=== PATIENT | male | born 1995 | race Caucasian/White ===

== ENCOUNTER 2019-03-12 10:11 | Emergency (ER) | payer SELFPAY ==
[2019-03-12 10:11] VITALS: BP 129/75; PULSE 114; RESP 20; TEMP 37.1; O2SAT 96; BMI 21.4
--- NOTE | 2019-03-12 10:43 | W.ED.ABDPA2 ---
HPI - Abdominal Pain General: Chief Complaint: Abdominal Pain Stated Complaint: vomiting, body aches Time Seen by Provider: 03/12/19 10:37 Source: patient Mode of arrival: ambulatory Limitations: no limitations History of Present Illness: HPI narrative: Patient comes in with complaints of nausea and vomiting starting this morning. Patient reports 2 episodes of mainly frothy type substance without any food. Patient has not eaten this morning. Patient states his ieutjx-ak-liy was also ill. Patient appears mildly unwell. Patient appears in no severe pain. MD elicited complaint: abdominal pain Associated Symptoms: Reports nausea and vomiting (twice) Review of Systems General: Reports: 10 or more systems reviewed and unremarkable except in HPI and below GI: Reports: nausea and vomiting (twice) PFSH ED PFSH: Statuses (acute, chronic, etc) shown below reflect problem list status as previously entered and may not be historically accurate Social History Smoking and tobacco status: never smoked Physical Exam Const: COMMON NORMALS: no apparent distress and oriented x3 GENERAL APPEARANCE: cooperative HENMT: COMMON NORMALS: normocephalic, external ears normal, EAC's normal, TM's normal bilaterally and external nose normal HEAD & SCALP: normal to inspection and normocephalic FACE & SINUS: normal facial exam NOSE: external nose normal GENERAL EAR: hearing grossly impaired EXTERNAL EAR: Yes external ears normal EXTERNAL AUDITORY CANAL: EAC's normal TYMPANIC MEMBRANE: TM's normal bilaterally MOUTH: oral and palatal mucosa normal THROAT: posterior oropharynx normal Eye: COMMON NORMALS: PERRL and EOMs intact bilaterally PUPIL: Yes PERRL Neck/C-Spine: COMMON NORMALS: full ROM and no lymphadenopathy Lymph: LYMPHATIC: no lymphedema noted Chest: COMMONS NORMALS: inspection of chest normal and palpation of chest normal Resp: COMMON NORMALS: normal respiratory effort and clear to auscultation bilaterally AUSCULTATION: clear to auscultation bilaterally Cardio: COMMON NORMALS: regular rate and regular rhythm RATE: regular rate RHYTHM: regular rhythm GI: COMMON NORMALS: normal to inspection, nondistended, normoactive bowel sounds and non-tender : COMMON NORMALS: Yes no CVA tenderness BLADDER/KIDNEY EXAM: Yes no CVA tenderness Back/Pelvis: COMMON NORMALS: no CVA tenderness and thoracic and lumbar spine normal to inspection Extremity: COMMON NORMALS: normal to inspection GENERAL: No edema Neuro: COMMON NORMALS: oriented x3, moves all extremities and no focal motor deficits Psych: COMMON NORMALS: mental status grossly normal and cooperative Skin: COMMON NORMALS: no rashes or lesions noted GENERAL SKIN EXAM: no rashes or lesions noted Course Vital Signs: Vital signs: Vital Signs Temperature 98.8 F 03/12/19 10:11 Pulse Rate 114 H 03/12/19 10:11 Respiratory Rate 20 H 03/12/19 10:11 Blood Pressure 129/75 03/12/19 10:11 Pulse Oximetry 96 03/12/19 10:11 MDM - Abdominal Pain MDM Narrative: Medical decision making narrative: Patient comes in today with complaints of some epigastric pain with nausea and vomiting x1. Patient reports that his ypefrl-vc-rxr was also ill with similar symptoms. Exam notes no significant tenderness with palpation of the abdomen. Posterior pharynx shows some clear drainage. Respirations are even lungs are clear to auscultation. Differential diagnosis includes gastroenteritis, gastroesophageal reflux disease, pancreatitis, colitis, cholecystitis, appendicitis. Reviewed exam with patient recommended clear liquid diet along with medication for nausea. Recommend work excuse for today reviewed usual course of gastroenteritis with recommendations for return to the ER for worsening signs and symptoms. Patient was agreeable to plan with need for follow-up. Discharge Plan Discharge Patient Disposition: Home, Self-Care Clinical Impression: Gastroenteritis Condition: Stable Prescriptions: New ondansetron HCl 4 mg tablet 4 mg PO Q8H PRN (Reason: nausea and vomiting) Qty: 10 RF: 0 Discharge Orders: Discharge Order (Routine); Ordered 03/12/19 Ordered By: Jamari Martinez Referrals: JANUSZ [Other] Discharge Diet: increase as tolerated Discharge Activity: Increase activity as tolerated Activity Restrictions/Additional Instructions: Drink plenty of fluids Activity as tolerated Monitor for high fever, blood in vomit or stool, or localizing pain into right lower abdomen Return to ER for concerns Follow-up with primary care in one week as needed Stand Alone Forms: Work/School Release Coding Level of Care Code ED Exhaust And Muffler Repairer for Gregory Tan Exam Problem Focused
[2019-03-12 10:52] VITALS: BP 106/70; PULSE 106; RESP 16; TEMP 37.6; O2SAT 97
== END 2019-03-12 10:56 | disposition home or self-care (01) ==
LOC: ER 04-02 11:34
PROVIDERS: Emergency Provider Nurse Practitioner Family
DX: K52.9 Noninfective gastroenteritis and colitis, unspecified (principal)
CPT/HCPCS: 99281

== ENCOUNTER → 2021-01-20 15:13 | Outpatient (BNVA) | payer OTHER, SELFPAY | PROVIDERS: Visit Provider Emergency Medicine | DX: Z20.822 Contact with and (suspected) exposure to COVID-19 (principal) | CPT/HCPCS: 87635 ==

== ENCOUNTER → 2023-09-05 10:44 | Outpatient (BNVA) | payer OTHER, SELFPAY | PROVIDERS: Visit Provider Family Medicine | DX: L98.9 Disorder of the skin and subcutaneous tissue, unspecified (principal) | CPT/HCPCS: 88304 ==

== ENCOUNTER 2024-10-29 05:30 | Emergency (ER) | payer OTHER, SELFPAY ==
--- OUTSIDE RECORDS SUMMARY | 2024-10-29 05:38 | XMS_ITS | Patient Health Record ---
Author Organization [facility] Address [address] [place] [address] Care Team Providers Care Accounts Payable Payroll Coordinator Name Role Phone Cathi Fitch Primary Care Provider Allergies No Known Allergies Reason For Referral No Information Medications Medication SIG (Take, Route, Frequency, Duration) Notes Start Date End Date Status Zithromax 250 MG Tablet as directed Orally 022 Active [id number]-[id number] Suspension 4 drops into affected ear Otic Three times a day; Duration: 7 days 02/08/2022 Active Social History Tobacco Use: Social History Observation Description Date Details (start date - stop date) Never Smoker NA - NA Social History Depression Screening Social Info Question Answer Notes PHQ-9 Little interest or pleasure in doing thin gs Not at all Feeling down, depressed, or hopeless Not at all Trouble falling or staying asleep, or sleeping t oo much Not at all Feeling tired or having little energy Not at all Poor appetite or overeating Not at all Feeling bad about yourself, or that you are a failure, or have let yourself or your family down Not at all Trouble concentrating on thi ngs, such as reading the newspaper or watching television Not at all Moving or speaking so slowly that other people could have noticed. Or the opposite ? being so fidgety or restless that you have been moving around a lot more than usual Not at all Thoughts that you would be b ancelmo off , or of hurting yourself in some way Not at all Total Score 0 Drugs/Alcohol: Social Info Question Answer Notes Alcohol Screen (Audit-C) Did you have a drink containing alcohol in the past year? No Points 0 Interpretation Negative Tobacco Use: Social Info Question Answer Notes xTobacco Use/Smoking Are you a nonsmoker Section Notes: 02-08-22 PHQ9 Plan Of Treatment No Information Insurance Providers Payer Name Payer Address Payer Phone Subscriber Number Group Number Insured Name Patient Relationship to Insured Coverage Start Date Coverage End Date [facility] [address] [address] [place] [address] [id number] Edgar Lugo Self - patient is the insured
[2024-10-29 05:40] VITALS: BP 127/76; PULSE 56; TEMP 36.7; O2SAT 96; BMI 22.9
[2024-10-29 05:51] VITALS: BP 116/77; PULSE 63; O2SAT 96
--- NOTE | 2024-10-29 06:08 | W.ED.ABDPA2 ---
HPI - Abdominal Pain General: Chief Complaint: Abdominal Pain Stated Complaint: n/v abd pain Time Seen by Provider: 10/29/24 06:01 History of Present Illness: 29-year-old male presents emergency room complaining of right upper quadrant pain radiating to his back that began overnight. He previously had episodes like this. He had nausea and vomiting he denies any diarrhea. No hematemesis or coffee-ground emesis. Denies dysuria urgency or frequency no hematuria remotely had a kidney stone says this does not feel like that at all. No previous abdominal surgeries. Associated Symptoms: Reports nausea and vomiting; Denies chills, coffee ground emesis, diarrhea, dysuria, fever(s) and hematemesis Related Data Previous Rx's ?Medication ?Instructions ?Recorded prednisone 10 mg tablets in a dose See Rx Instructions PO PER PKG DIR 06/05/24 pack #21 ea hydrocodone 5 mg-acetaminophen 325 1 tab PO Q6H PRN pain #15 tabs 10/29/24 mg tablet promethazine 25 mg tablet 25 mg PO Q6H PRN nausea and 10/29/24 vomiting #20 tabs tamsulosin 0.4 mg capsule 0.4 mg PO DAILY #14 caps 10/29/24 Allergies Allergy/AdvReac Type Severity Reaction Status Date / Time No Known Allergies Allergy Verified 10/29/24 05:45 Review of Systems Const: Denies: fever(s) or chills Card: Denies: chest pain Resp: Denies: dyspnea GI: Reports: abdominal pain, nausea and vomiting; Denies: hematemesis, coffee ground emesis or diarrhea : Denies: dysuria, urinary frequency or urinary urgency Musc: Denies: neck pain or back pain Skin/Breast: Denies: rash PFSH ED PFSH: Social History Smoking and tobacco/nicotine status: never used tobacco/nicotine Physical Exam Const: GENERAL APPEARANCE: cooperative ORIENTATION/CONSCIOUSNESS: Yes awake, Yes oriented to person, Yes oriented to place and Yes oriented to time HENMT: COMMON NORMALS: normocephalic, atraumatic and hearing grossly normal bilaterally HEAD & SCALP: normocephalic and atraumatic Resp: COMMON NORMALS: normal respiratory effort, No retractions, No use of accessory muscles and clear to auscultation bilaterally AUSCULTATION: clear to auscultation bilaterally Cardio: COMMON NORMALS: regular rate, regular rhythm and No murmurs present (Cardio) RATE: regular rate RHYTHM: regular rhythm GI: COMMON NORMALS: Soft to palpation and No hepatosplenomegaly present AUSCULTATION: Yes normoactive bowel sounds PALPATION: Yes Soft to palpation, No Tenderness to palpation present (GI), No Guarding due to palpation present (GI) and Yes No hepatosplenomegaly present Extremity: COMMON NORMALS: normal to inspection, capillary refill normal, no clubbing, cyanosis or edema, no calf tenderness and no pedal edema Neuro: SENSORIUM/ORIENTATION: Yes oriented to person, Yes oriented to place and Yes oriented to time Skin: COMMON NORMALS: no rashes or lesions noted GENERAL SKIN EXAM: no rashes or lesions noted Course Vital Signs: Vital signs: Vital Signs Temperature 98.0 F 10/29/24 05:40 Pulse Rate 70 10/29/24 07:42 Blood Pressure 117/71 10/29/24 07:42 Pulse Oximetry 95 10/29/24 07:42 Oxygen Delivery Me thod Room Air 10/29/24 06:24 MDM - Abdominal Pain Medical Decision Making Microscopic hematuria on UA. CT shows 2 to 3 mm stone mid ureter on the right. Discharged home on tamsulosin and hydrocodone promethazine to use as needed strain urine to collect stone follow-up with urology. Medical Records I reviewed the patient's medical records. Lab Data I reviewed the patient's lab results. 10/29/24 05:48 10/29/24 05:48 Labs/Radiology: Radiology Impressions Abdomen/Pelvis CT 10/29/24 06:35 IMPRESSION: Very mild right hydronephrosis secondary to a 2-3 mm stone in the right ureter at the L4 level. Laboratory Results WBC 6.21 10^3/uL (3.29-11.43) 10/29/24 05:48 RBC 5.65 10^6/uL (3.85-5.65) 10/29/24 05:48 Hgb 15.80 g/dL (11.27-16.99) 10/29/24 05:48 Hct 47.6 % (37-53) 10/29/24 05:48 MCV 84.2 fl (82-101) 10/29/24 05:48 MCH 28.0 pg (27-33) 10/29/24 05:48 MCHC 33.2 g/dL (30-55) 10/29/24 05:48 RDW 11.9 % (12.1-15.1) L 10/29/24 05:48 Plt Count 208 10^3/cmm (157-399) 10/29/24 05:48 MPV 10.7 fL (7.4-10.4) H 10/29/24 05:48 Neut % (Auto) 68.2 % 10/29/24 05:48 Lymph % (Auto) 22.4 % 10/29/24 05:48 [place] % (Auto) 7.7 % 10/29/24 05:48 Eos % (Auto) 1.1 % 10/29/24 05:48 Baso % (Auto) 0.3 % 10/29/24 05:48 Neut # (Auto) 4.23 10^3/uL (1.8-7.7) 10/29/24 05:48 Lymph # (Auto) 1.4 10^3/uL (0.8-4.8) 10/29/24 05:48 [place] # (Auto) 0.5 10^3/uL (0.2-0.9) 10/29/24 05:48 Eos # (Auto) 0.1 10^3/uL (0.0-0.8) 10/29/24 05:48 Baso # (Auto) 0.0 10^3/uL (0.0-0.1) 10/29/24 05:48 Nucleated RBC % (auto) 0 % 10/29/24 05:48 Nucleated RBCs # 0.0 /100WBC 10/29/24 05:48 Sodium 139 mmol/L (136-145) 10/29/24 05:48 Potassium 4.3 mmol/L (3.5-5.1) 10/29/24 05:48 Chloride 101 mmol/L (98-107) 10/29/24 05:48 Carbon Dioxide 28 mmol/L (22-29) 10/29/24 05:48 Anion Gap 14.3 (5-19) 10/29/24 05:48 BUN 12 mg/dL (6-20) 10/29/24 05:48 Creatinine 1.0 mg/dL (0.7-1.2) 10/29/24 05:48 GFR Calculation 89.0 mL/min (90-130) L 10/29/24 05:48 Glucose 115 mg/dL (65-115) 10/29/24 05:48 Calculated Osmolality 289 mOsm/kg (285-295) 10/29/24 05:48 Calcium 9.7 mg/dL (8.5-10.5) 10/29/24 05:48 Total Bilirubin 0.8 mg/dL (0.15-1.2) 10/29/24 05:48 AST 14 U/L (0-40) 10/29/24 05:48 ALT 23 U/L (0-41) 10/29/24 05:48 Alkaline Phosphatase 98 U/L (40-130) 10/29/24 05:48 Total Protein 7.5 g/dL (6.6-8.7) 10/29/24 05:48 Albumin 4.8 g/dL (3.5-5.2) 10/29/24 05:48 Globulin 2.7 g/dL (1.3-4.6) 10/29/24 05:48 Lipase 22 U/L (13-60) 10/29/24 05:48 Urine Color Yellow (Yellow) 10/29/24 07:14 Urine Appearance Cloudy (CLEAR) A 10/29/24 07:14 Urine pH 7.0 (5-7) 10/29/24 07:14 Ur Specific [place] 1.029 (1.005-1.030) 10/29/24 07:14 Urine Protein 1+ (Negative) A 10/29/24 07:14 Urine Glucose (UA) Negative (Normal) 10/29/24 07:14 Urine Ketones Negative (Negative) 10/29/24 07:14 Urine Blood 3+ (Negative) A 10/29/24 07:14 Urine Nitrate Negative (Negative) 10/29/24 07:14 Urine Bilirubin Negative (Negative) 10/29/24 07:14 Urine Urobilinogen 0.2 mg/dL (Negative) 10/29/24 07:14 Ur Leukocyte Esterase Negative (Negative) 10/29/24 07:14 Urine RBC 51-100 /hpf (0-2) H 10/29/24 07:14 Urine WBC 6-10 /hpf (0-5) 10/29/24 07:14 Ur Squamous Epith Cells 0-5 /hpf (0-5) 10/29/24 07:14 Amorphous Sediment Not Reportable 10/29/24 07:14 Urine Bacteria None seen /hpf (NONE) 10/29/24 07:14 Hyaline Casts 2.46 /lpf 10/29/24 07:14 Urine Mucus Trace /hpf 10/29/24 07:14 Urine Sperm 1+ /hpf 10/29/24 07:14 All radiology interpretation(s) finalized by discharge Discharge Plan Discharge Patient Disposition: Home Clinical Impression: Calculus of kidney Condition: Stable Prescriptions: New hydrocodone-acetaminophen 5-325 mg tablet 1 tab PO Q6H PRN (Reason: pain) Qty: 15 0RF promethazine 25 mg tablet 25 mg PO Q6H PRN (Reason: nausea and vomiting) Qty: 20 0RF tamsulosin 0.4 mg capsule 0.4 mg PO DAILY Qty: 14 0RF No Action prednisone 10 mg tablets,dose pack See Rx Instructions PO PER PKG DIR Qty: 21 0RF Rx Instructions: PO PER PKG DIR Discharge Orders: Discharge ED (Routine); Ordered 10/29/24 Ordered By: Haroon Yuan Discharge Diet: Usual diet Discharge Activity: Increase activity as tolerated Patient Instructions: Kidney Stones (ED), How to Strain Your Urine (ED), Opioid Safety, Pain Management, Patient Portal & Judith Instructions Activity Restrictions/Additional Instructions: Thank you for choosing [facility] for your healthcare needs today. It is very important that you follow up as instructed or that you return to the Emergency Department should you have concerns or if your condition changes or worsens in any way. Emergency department visits are focused on emergent conditions, in some cases you may require further evaluation on an outpatient basis. You were seen in the emergency room with abdominal pain urine showed some blood CT shows a 2 to 3 mm stone in the right ureter. Stones less than 5 mm typically will pass. We started you on tamsulosin which helps the stone pass quicker you are given hydrocodone and promethazine for pain and nausea as needed. Strain your urine to collect the stone to be analyzed. web site project manager will make arrangements for you to follow-up with urologist (Please note that included in your discharge packet is information concerning opioid safety and pain management. This information is given to all patients were discharged from the ER regardless of their discharge diagnosis or the medicines they usually take or are prescribed.) Print Language: Burmese Coding Level of Care Code ED Director Of Physical Therapy for Gregory Tan
[2024-10-29 06:09] LABS: Hematocrit 47.6 % (37-53); Hemoglobin 15.80 g/dL (11.27-16.99); Mean Corpuscular HGB Conc 33.2 g/dL (30-55); Mean Corpuscular Hemoglobin 28.0 pg (27-33); Mean Corpuscular Volume 84.2 fl (82-101); Nucleated Red Blood Cells % 0 %; Platelet Count 208 10^3/cmm (157-399); Red Blood Count 5.65 10^6/uL (3.85-5.65); White Blood Count 6.21 10^3/uL (3.29-11.43)
[2024-10-29] MEDS: ondansetron 2 mg/ML SDV 2 mL 4 MG IVP (06:22)
[2024-10-29 06:24] VITALS: BP 126/70; PULSE 64; O2SAT 95
[2024-10-29 06:29] LABS: Alanine Aminotransferase 23 U/L (0-41); Albumin Level 4.8 g/dL (3.5-5.2); Alkaline Phosphatase 98 U/L (40-130); Anion Gap 14.3 (5-19); Aspartate Amino Transferase 14 U/L (0-40); Blood Urea Nitrogen 12 mg/dL (6-20); Calcium 9.7 mg/dL (8.5-10.5); Carbon Dioxide 28 mmol/L (22-29); Chloride 101 mmol/L (98-107); Creatinine Clr Calc Pharmacy 113.2911; Globulin 2.7 g/dL (1.3-4.6); Glucose 115 mg/dL (65-115); Lipase 22 U/L (13-60); Osmolality Calculated 289 mOsm/kg (285-295); Potassium 4.3 mmol/L (3.5-5.1); Sodium 139 mmol/L (136-145); Total Protein 7.5 g/dL (6.6-8.7)
--- NOTE | 2024-10-29 06:35 | CTR_ITS ---
PROCEDURE INFORMATION: Exam: CT Abdomen And Pelvis With Contrast Exam date and time: 10/29/2024 6:52 AM Age: 29 years old Clinical indication: Abdominal pain; Localized; Right lower quadrant (RLQ); Additional info: Abd pain TECHNIQUE: Imaging protocol: Computed tomography of the abdomen and pelvis with contrast. Radiation optimization: All CT scans at this facility use at least one of these dose optimization techniques: automated exposure control; mA and/or kV adjustment per patient size (includes targeted exams where dose is matched to clinical indication); or iterative reconstruction. Contrast material: OMNI 350; Contrast volume: 100 ml; Contrast route: INTRAVENOUS (IV); COMPARISON: No relevant prior studies available. RADIATION DOSE METRICS: Total DLP (mGy-cm): 406.5 FINDINGS: Liver: No significant abnormality of the liver. There is a tiny cyst or hemangioma measuring a few mm posteriorly in the right lobe. Gallbladder and biliary ducts: No gallbladder wall thickening, radiodense stones, or significant biliary duct dilation. Pancreas: No acute abnormality or obvious pancreatic duct dilation. Spleen: Normal size; no suspicious masses. Adrenal glands: No suspicious adrenal masses. Kidneys and ureters: Symmetric renal parenchymal enhancement. There is mild fullness of right renal collecting system and proximal ureter secondary to a 2-3 mm stone in the proximal right ureter at the L4 level. Stomach and bowel: No evidence of gastric outlet obstruction or bowel obstruction. Appendix: No evidence of appendicitis. Intraperitoneal space: No free intraperitoneal air or significant ascites. Vasculature: Abdominal aorta has normal caliber. Lymph nodes: No enlarged lymph nodes. Urinary bladder: No significant bladder wall thickening. Reproductive: Visualized portions show no obvious acute abnormality. Bones/joints: No acute fracture. Soft tissues: Unremarkable. CT/CT abdomen pelvis w con* [id number] IMPRESSION: Very mild right hydronephrosis secondary to a 2-3 mm stone in the right ureter at the L4 level.
[2024-10-29] MEDS: iohexol 350 mg/mL 500 mL Btl (per mL) IV (06:56)
--- NOTE | 2024-10-29 07:00 | PC.NURSE ---
attempted to collect urine sample, pt in CT at this time.
[2024-10-29 07:22] LABS: Glucose Urine UA Negative (Normal); Nitrate Urine Negative (Negative); Specific Gravity, Urine 1.029 (1.005-1.030)
[2024-10-29 07:24] LABS: Add Urine Microscopic? YES
[2024-10-29 07:36] LABS: UA Slide Review UA Slide Review Perf
[2024-10-29 07:42] VITALS: BP 117/71; PULSE 70; O2SAT 95
[2024-10-29 07:54] VITALS: BP 117/71; PULSE 61; O2SAT 98
== END 2024-10-29 07:54 | disposition home or self-care (01) ==
PROVIDERS: Emergency Provider Family Medicine
DX: N20.0 Calculus of kidney (principal)
CPT/HCPCS: 74177; 80053; 81001; 83690; 85025; 87086; 96374; 99285; J2405; J7030

== ENCOUNTER 2024-12-07 13:21 | Outpatient (CLI) | payer OTHER, SELFPAY ==
--- NOTE | 2024-12-07 13:33 | CTR_ITS ---
PROCEDURE INFORMATION: Exam: CT Abdomen And Pelvis Without Contrast Exam date and time: 12/07/2024 1:41 PM Age: 29 years old Clinical indication: Condition or disease; Kidney or ureter condition; Calculus (stone) in ureter; Follow up right side flank pain since Additional info: R ureteral stone TECHNIQUE: Imaging protocol: Computed tomography of the abdomen and pelvis without contrast. Radiation optimization: All CT scans at this facility use at least one of these dose optimization techniques: automated exposure control; mA and/or kV adjustment per patient size (includes targeted exams where dose is matched to clinical indication); or iterative reconstruction. COMPARISON: CT abdomen pelvis w con* [id number] 10/29/2024 6:52 AM RADIATION DOSE METRICS: Total DLP (mGy-cm): 286.3 FINDINGS: Liver: Normal. No mass. Gallbladder and biliary ducts: Normal. No calcified stones. No ductal dilation. Pancreas: Normal. No ductal dilation. Spleen: Normal. No splenomegaly. Adrenal glands: Normal. No mass. Kidneys and ureters: Normal. No hydronephrosis. Stomach and bowel: Unremarkable. No obstruction. No mucosal thickening. Appendix: No evidence of appendicitis. Intraperitoneal space: Unremarkable. No free air. No significant fluid collection. Vasculature: Unremarkable. No abdominal aortic aneurysm. Lymph nodes: Unremarkable. No enlarged lymph nodes. Urinary bladder: Unremarkable as visualized. Reproductive: Unremarkable as visualized. Bones/joints: Unremarkable. No acute fracture. Soft tissues: Unremarkable. CT/CT kidney stone [id number] IMPRESSION: No acute findings.
== END 2024-12-07 13:22 | disposition home or self-care (01) ==
LOC: RAD 13:27
PROVIDERS: Visit Provider Nurse Practitioner Family
DX: N20.1 Calculus of ureter (principal)
CPT/HCPCS: 74176

== ENCOUNTER 2025-02-23 15:56 | Outpatient (CLI) | payer OTHER, SELFPAY ==
--- NOTE | 2025-02-23 16:02 | XRR_ITS ---
PROCEDURE INFORMATION: Exam: XR Right Shoulder Exam date and time: 02/23/2025 4:13 PM Age: 29 years old Clinical indication: Bilateral; Limited rom in shoulders x4-5 years pain when raising arms, popping, pain and limited rom in both knees x4-5; Additional info: Bilateral shoulder pain TECHNIQUE: Imaging protocol: Radiologic exam of the right shoulder. Views: 2 or more views. COMPARISON: No relevant prior studies available. FINDINGS: Bones/joints: Normal. Soft tissues: Normal. XR/XR shoulder RT min 2V* [id number] IMPRESSION: No acute findings.
--- NOTE | 2025-02-23 16:03 | XRR_ITS ---
PROCEDURE INFORMATION: Exam: XR Left Knee Exam date and time: 02/23/2025 4:13 PM Age: 29 years old Clinical indication: Bilateral; Limited rom in shoulders x4-5 years pain when raising arms, popping, pain and limited rom in both knees x4-5; Additional info: Bilateral knee pain TECHNIQUE: Imaging protocol: Radiologic exam of the left knee. Views: 1 or 2 views. COMPARISON: No relevant prior studies available. FINDINGS: Bones/joints: Normal. Soft tissues: Normal. XR/XR knee LT 1-2V [id number] IMPRESSION: No acute findings.
--- NOTE | 2025-02-23 16:03 | XRR_ITS ---
PROCEDURE INFORMATION: Exam: XR Right Knee Exam date and time: 02/23/2025 4:13 PM Age: 29 years old Clinical indication: Bilateral; Limited rom in shoulders x4-5 years pain when raising arms, popping, pain and limited rom in both knees x4-5; Additional info: Bilateral knee pain TECHNIQUE: Imaging protocol: Radiologic exam of the right knee. Views: 1 or 2 views. COMPARISON: No relevant prior studies available. FINDINGS: Bones/joints: Normal. Soft tissues: Normal. XR/XR knee RT 1-2V [id number] IMPRESSION: No acute findings.
--- NOTE | 2025-02-23 16:03 | XRR_ITS ---
PROCEDURE INFORMATION: Exam: XR Left Shoulder Exam date and time: 02/23/2025 4:13 PM Age: 29 years old Clinical indication: Bilateral; Limited rom in shoulders x4-5 years pain when raising arms, popping, pain and limited rom in both knees x4-5; Additional info: Bilateral shoulder pain TECHNIQUE: Imaging protocol: Radiologic exam of the left shoulder. Views: 2 or more views. COMPARISON: No relevant prior studies available. FINDINGS: Bones/joints: Normal. Soft tissues: Normal. XR/XR shoulder LT min 2V* [id number] IMPRESSION: No acute findings.
== END 2025-02-23 15:57 | disposition home or self-care (01) ==
LOC: RAD 15:58
PROVIDERS: PCP Nurse Practitioner Family; Visit Provider Nurse Practitioner Family
DX: M25.562 Pain in left knee (principal); M25.561 Pain in right knee; M25.511 Pain in right shoulder; M25.512 Pain in left shoulder
CPT/HCPCS: 73030; 73560